=== PATIENT | male | born 2000 | race Caucasian/White ===

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

== ENCOUNTER 2018-08-10 13:00 | Emergency (ER) | payer BC ==
[2018-08-10 13:53] VITALS: BP 124/57
[2018-08-10] MEDS ORDERED: cefTRIAXone VIAL(*) 1,000 MG VIAL IM ONE (14:01)
[2018-08-10] MEDS ORDERED: Lidocaine 1%* 5 ML VIAL ONE (14:05)
--- NOTE | 2018-08-10 14:16 | UC ---
Skin Complaint HPI - HPI Summary HPI Summary: cellulitis left arm x 3 days was seen at the ED , was place on Bactrim getting worse now with increase redness, swelling and pain of his left forearm / wrist red streaking up his arm no fever, no chills - History of Current Complaint Chief Complaint: [facility] Time Seen by Provider: 08/10/18 13:58 Stated Complaint: LEFT ARM SKIN Hx Obtained From: Patient Onset/Duration: Gradual Onset, Lasting Days - 3, Still Present Timing: Constant Onset Severity: Mild Current Severity: Moderate Pain Intensity: 6 Location: Discrete - left forearm / wrist Character: Swelling, Pain, Redness, Raised, Painful Aggravating Factor(s): Touch Alleviating Factor(s): Nothing Associated Signs & Symptoms: Positive: Tenderness, Red Streaks. Negative: Nausea, Vomiting, Numbness - Allergy/Home Medications Allergies/Adverse Reactions: Allergies Allergy/AdvReac Type Severity Reaction Status Date / Time erythromycin base Allergy "Swelling Verified 08/10/18 13:50 and Feverish" Home Medications: Home Medications Diphenhydramine HCl/Zinc Acet [Benadryl] 1 applic TOPICAL SEE INSTRUCTIONS PRN 08/10/18 [History Confirmed 08/10/18] Sulfamethox/Trimethoprim DS* [Bactrim DS 800/160 TAB*] 1 tab PO BID 08/10/18 [ History Confirmed 08/10/18] PMH/Surg Hx/FS Hx/Imm Hx Previously Healthy: Yes - Surgical History Surgical History: None Surgery Procedure, Year, and Place: ear tubes as a child - Family History Known Family History: Positive: Cardiac Disease, Diabetes, Other - cancer - Social History Alcohol Use: Rare Substance Use Type: Marijuana Substance Use Comment - Amount & Last Used: < Monthly Smoking Status (MU): Never Smoked Tobacco Review of Systems All Other Systems Reviewed And Are Negative: Yes Constitutional: Positive: Negative Eyes: Positive: Negative ENT: Positive: Negative Respiratory: Positive: Negative Cardiovascular: Positive: Negative Is Patient Immunocompromised?: No Physical Exam Triage Information Reviewed: Yes Appearance: Well-Appearing, No Pain Distress, Well-Nourished Vital Signs: Initial Vital Signs Temp 98.7 F 08/10/18 13:46 Pulse 60 08/10/18 13:46 Resp 16 08/10/18 13:46 BP 124/57 08/10/18 13:46 Pulse Ox 100 08/10/18 13:46 Vital Signs Reviewed: Yes Eye Exam: Normal Eyes: Positive: Conjunctiva Clear ENT: Positive: Normal ENT inspection, Hearing grossly normal, Pharynx normal Neck: Positive: Supple, Nontender, No Lymphadenopathy Respiratory: Positive: Chest non-tender, Lungs clear, Normal breath sounds Cardiovascular: Positive: RRR, No Murmur, Pulses Normal Skin: Positive: Other - cellulitis left wrist , + erythema, swelling, tenderness , red streaking up the left forearm Course/Dx - Diagnoses Provider Diagnosis: Cellulitis of forearm, left Discharge - Sign-Out/Discharge Documenting (check all that apply): Patient Departure All imaging exams completed and their final reports reviewed: No Studies - Discharge Plan Condition: Stable Disposition: HOME Prescriptions: Cephalexin CAP* [Keflex CAP*] 500 mg PO TID #30 cap Patient Education Materials: Cellulitis (ED) Forms: *Work Release Referrals: Ashwin Hernandez DO [Primary Care Provider] - 5 Days Additional Instructions: cont. with Bactrim DS will add Keflex 3 x per day for 10 days please follow up in 3 days for recheck , sooner if getting worse - Billing Disposition and Condition Condition: STABLE Disposition: Home
== END 2018-08-10 14:44 | disposition home or self-care (01) ==
LOC: UCCORT 13:00
DX: L03.114 Cellulitis of left upper limb (principal); Z88.1 Allergy status to other antibiotic agents
CPT/HCPCS: 96372; 99212; G0463; J0696